=== PATIENT | male | born 1955 | race Hispanic/Latino ===

== ENCOUNTER 2017-07-18 18:37 | Emergency (ER) | payer OTHER ==
[~2017-07-18] VITALS: Ht 170.2 cm; Wt 91.2 kg
[~2017-07-18 18:37] MED LIST: ASPIR 8181 MG PO; BACITRACIN15 GM TOP; BACTRIM DS TAB1 EACH PO; IPRAT-ALBUT 0.5-3 ML NEB; KEFLEX500 MG PO; LEVAQUIN500 MG PO; MEDROL4 MG/DOSE- PO; METFORMIN HCL850 MG PO; PROMETHAZINE V237 ML PO; RAMIPRIL5 MG PO
[2017-07-18] MEDS ORDERED: DIPHENHYDRAMINE HCL 25 MG CAP PO ONE (19:15)
[2017-07-18] MEDS ORDERED: DEXAMETHASONE SOD PHOS 10 MG/1 ML VIAL INJ ONE ×3 (19:15→21:15)
[2017-07-18] MEDS ORDERED: FAMOTIDINE 20 MG TAB PO ONE (19:15)
[2017-07-18] MEDS ORDERED: DEXAMETHASONE SOD PHOS 10 MG/1 ML VIAL ONE (19:20)
[2017-07-18] MEDS ORDERED: HYDROCODONE/APAP 10MG-325MG TAB PO ONE (21:15)
[2017-07-18 21:56] VITALS: BP 153/74
== END 2017-07-18 22:04 | disposition home or self-care (01) ==
LOC: ER 18:37
DX: R21 Rash and other nonspecific skin eruption (principal); L50.9 Urticaria, unspecified
CPT/HCPCS: 96372; 99283; J1100

== ENCOUNTER 2017-10-13 05:56 | Emergency (ER) | payer OTHER ==
[~2017-10-13] VITALS: Ht 170.2 cm; Wt 91.2 kg
[2017-10-13] MEDS ORDERED: ALBUTEROL SULF 0.083% NEB SOLN 3 ML NEB NEB STA (06:09)
[2017-10-13] MEDS ORDERED: PREDNISONE 20 MG TAB PO ONE (06:15)
[2017-10-13] MEDS ORDERED: IPRATROPIUM BROMIDE 0.02% 2.5 ML NEB NEB ONE (06:15)
--- NOTE | 2017-10-13 06:46 | Diagnostic Imaging Report ---
CHEST SINGLE (PORTABLE), 10/13/2017 6:09 AM Technique: CHEST SINGLE (PORTABLE) Comparison: 09/13/2016 Clinical history: Shortness of breath Findings: Mildly degraded by portable technique and motion. Stable cardiomediastinal silhouette. No consolidation or edema. No pleural effusion or pneumothorax. Impression: 1. Lines/Tubes: None 2. No acute abnormality. Signed by: Dr Holly Meadows MD on 10/13/2017 6:43 AM
[2017-10-13] MEDS ORDERED: DEXAMETHASONE SOD PHOS 10 MG/1 ML VIAL INJ ONE (07:30)
[2017-10-13] MEDS ORDERED: ALBUTEROL/IPRATROPIUM 3 ML NEB NEB ONE (07:30)
[2017-10-13 10:28] VITALS: BP 165/90
[2017-10-13 22:16] LABS: ABG HCO3 21 mmol/L (23-28); ABG PCO2 28 mmHg (41-51); ABG PH 7.49 (7.31-7.41); ABG PO2 142 mmHg (80-105)
== END 2017-10-13 10:43 | disposition home or self-care (01) ==
LOC: ER 05:56
DX: R06.02 Shortness of breath (principal); R05 Cough; J44.9 Chronic obstructive pulmonary disease, unspecified; I10 Essential (primary) hypertension; E11.9 Type 2 diabetes mellitus without complications
CPT/HCPCS: 36415; 71045; 82805; 94640 ×2; 99284; J1100

== ENCOUNTER 2019-01-08 15:23 | Emergency (ER) | payer OTHER ==
[~2019-01-08] VITALS: Ht 170.2 cm; Wt 91.2 kg
--- OUTSIDE RECORDS SUMMARY | 2019-01-08 15:28 | XMS REPORT ---
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 Allergies, Adverse Reactions, Alerts This patient has no known allergies or adverse reactions. Medications This patient has no known medications. Results Test Description Test Time Test Comments Text Results Atomic Results Result Comments CHEST SINGLE (PORTABLE) [place] [id number] Patient Name: LUIS MCKEON JR MR #: [id number] : 1955 Age/Sex: 61/M [id number] Req #: [id number] Adm Physician: Ordered by: LINDSEY JACK MD Report #: [id number] Location: ER Room/Bed: Procedure: [id number] DX/CHEST SINGLE (PORTABLE) Exam Date: 10/13/17 Exam Time: 0634 REPORT STATUS: Signed CHEST SINGLE (PORTABLE), 10/13/2017 6:09 AM Technique: CHEST SINGLE (PORTABLE) Comparison: 09/13/2016 Clinical history: Shortness of breath Findings: Mildly degraded by portable technique and motion. Stable cardiomediastinal silhouette. No consolidation or edema. No pleural effusion or pneumothorax. Impression: 1. Lines/Tubes: None 2. No acute abnormality. Signed by: Dr Rosie Meadows MD on 10/13/2017 6:43 AM Dictated By: ROSIE MEADOWS MD 2 Transcribed By: EVY on 10/13/17642 COPY TO: LINDSEY JACK MD
[2019-01-08] MEDS ORDERED: AZITHROMYCIN 500MG/NS 250 ML 250 ML IV ONE (16:45)
--- NOTE | 2019-01-08 16:51 | Diagnostic Imaging Report ---
Frontal and lateral views of the chest. HISTORY: Fever, cough, congestion COMPARISON: Chest radiograph October 13, 2017. DISCUSSION: Lungs: Patchy interstitial and airspace opacities at the right mid lung and left retrocardiac region. Pleura: No pleural effusion or pneumothorax. Heart and mediastinum: The cardiomediastinal silhouette appears unremarkable. Bones and soft tissues: Appear unremarkable. IMPRESSION: 1. Findings compatible with multifocal pneumonia. 2. Recommend short term follow up routine PA and lateral chest radiographs, in 6 to 8 weeks, to evaluate for resolution. Signed by: Dr. Cosme Amaya D.O., M.M.M. on 01/08/2019 4:47 PM
--- NOTE | 2019-01-08 16:56 | NUR ---
BRANDT Flor AT BEDSIDE EVALUATING PATIENT
[2019-01-08] MEDS ORDERED: CEFTRIAXONE SOD 1 GM/NS 50 ML 50 ML IV ONE (17:30)
[2019-01-08 17:51] LABS: BASOPHILS % 0.3 % (0.0-1.0); EOSINOPHILS # (AUTO) 0.3 (0.0-0.4); HEMATOCRIT 40.4 % (38.2-49.6); HEMOGLOBIN 13.7 g/dL (14.0-18.0); LYMPHOCYTES # (AUTO) 1.4 (1.0-3.2); LYMPHOCYTES % 12.4 % (18.0-39.1); MEAN CORPUSCULAR HEMOGLOBIN 31.8 pg (28-32); MEAN CORPUSCULAR HGB CONC 33.9 g/dL (31-35); MEAN CORPUSCULAR VOLUME 93.7 fL (81-99); MONOCYTES # (AUTO) 0.8 (0.2-0.8); MONOCYTES % 6.6 % (4.4-11.3); NEUTROPHILS # (AUTO) 8.8 (2.1-6.9); NEUTROPHILS % 76.9 % (38.7-80.0); PLATELET COUNT 265 x10e3/uL (140-360); RED BLOOD COUNT 4.31 x10e6/uL (4.3-5.7); RED CELL DISTRIBUTION WIDTH 13.4 % (11.7-14.4)
[2019-01-08 18:08] LABS: INR 1.03
[2019-01-08 18:09] LABS: PARTIAL THROMBOPLASTIN TIME 35.1 seconds (23.8-35.5)
[2019-01-08 18:12] LABS: ALANINE AMINOTRANSFERASE 19 IU/L (0-55); ALBUMIN 3.1 g/dL (3.5-5.0); ALBUMIN/GLOBULIN RATIO 0.7 (0.8-2.0); ALKALINE PHOSPHATASE 75 IU/L (40-150); ANION GAP 13.9 mmol/L (8-16); BLOOD UREA NITROGEN 17 mg/dL (7-26); BUN/CREATININE RATIO 22 (6-25); CALCIUM 9.5 mg/dL (8.4-10.2); CARBON DIOXIDE 22 mmol/L (22-29); CHLORIDE 100 mmol/L (98-107); CREATINE KINASE 77 IU/L (30-200); CREATININE, SERUM 0.79 mg/dL (0.72-1.25); EST GLOMERULAR FILTRATION RATE > 60 ML/MIN (60-); GLUCOSE 140 mg/dL (74-118); POTASSIUM 3.9 mmol/L (3.5-5.1); SODIUM 132 mmol/L (136-145)
[2019-01-08 18:16] LABS: BILIRUBIN,URINE NEGATIVE (NEGATIVE); CLARITY,URINE SL CLOUDY (CLEAR); COLOR,URINE YELLOW (YELLOW); KETONES,URINE NEGATIVE (NEGATIVE); LEUKOCYTE ESTERASE ,URINE TRACE (NEGATIVE); NITRITE,URINE NEGATIVE (NEGATIVE); PROTEIN,URINE DIPSTICK TRACE (NEGATIVE); URINE UROBILINOGEN 1 mg/dL (0.2 - 1)
--- NOTE | 2019-01-08 18:21 | NUR ---
DR. FLOOD AT BEDSIDE UPDATING PATIENT ON HIS STATUS
[2019-01-08 18:31] LABS: BACTERIA,URINE RARE /HPF; EPITHELIAL CELLS,URINE RARE /LPF; RBC,URINE 0-5 /HPF (0-5); WBC,URINE (MAN) 21-50 /HPF (0-5)
--- NOTE | 2019-01-08 18:51 | NUR ---
PATIENT RECEIVING IV ANTIBIOTIC. WILL BE DISCHARGED AFTER MEDICATION IS INFUSED
== END 2019-01-08 19:12 | disposition home or self-care (01) ==
LOC: ER 15:23
DX: R50.9 Fever, unspecified (principal); R05 Cough; J15.9 Unspecified bacterial pneumonia; N39.0 Urinary tract infection, site not specified; I10 Essential (primary) hypertension; E11.9 Type 2 diabetes mellitus without complications; J44.9 Chronic obstructive pulmonary disease, unspecified; F17.210 Nicotine dependence, cigarettes, uncomplicated
CPT/HCPCS: 36415; 71046; 80053; 81001; 82550; 82553; 83880; 84484; 85025; 85610; 85730; 87040; 87086; 93005; 99284; J0456; J0696

== ENCOUNTER 2021-08-02 11:14 | Inpatient (IN) | payer MEDICARE, OTHER ==
[~2021-08-02] VITALS: Ht 170.2 cm; Wt 91.2 kg
[2021-08-02] MEDS ORDERED: SODIUM CHLORIDE 0.9% 1000ML 1,000 ML IV STA (12:07)
[2021-08-02 12:19] LABS: BASOPHILS # (AUTO) 0.1 (0.0-0.1); BASOPHILS % 0.4 % (0.0-1.0); EOSINOPHILS # (AUTO) 0.2 (0.0-0.4); HEMATOCRIT 45.5 % (38.2-49.6); HEMOGLOBIN 14.8 g/dL (14.0-18.0); LYMPHOCYTES # (AUTO) 1.2 (1.0-3.2); LYMPHOCYTES % 7.4 % (18.0-39.1); MEAN CORPUSCULAR HEMOGLOBIN 31.2 pg (28-32); MEAN CORPUSCULAR HGB CONC 32.5 g/dL (31-35); MONOCYTES # (AUTO) 1.3 (0.2-0.8); MONOCYTES % 7.8 % (4.4-11.3); NEUTROPHILS # (AUTO) 13.6 (2.1-6.9); NEUTROPHILS % 82.8 % (38.7-80.0); PLATELET COUNT 243 x10e3/uL (140-360); RED BLOOD COUNT 4.74 x10e6/uL (4.3-5.7); RED CELL DISTRIBUTION WIDTH 12.6 % (11.7-14.4)
[2021-08-02 12:25] LABS: INR 0.97; PROTHROMBIN TIME 13.6 seconds (11.9-14.5)
[2021-08-02 12:26] LABS: PARTIAL THROMBOPLASTIN TIME 34.7 seconds (23.8-35.5)
[2021-08-02 12:34] LABS: ALBUMIN 3.8 g/dL (3.5-5.0); ALBUMIN/GLOBULIN RATIO 0.9 (0.8-2.0); ANION GAP 15.2 mmol/L (8-16); CALCIUM 9.6 mg/dL (8.4-10.2); CREATININE, SERUM 0.79 mg/dL (0.72-1.25); MAGNESIUM 1.8 MG/DL (1.3-2.1); POTASSIUM 4.2 mmol/L (3.5-5.1)
[2021-08-02 12:35] LABS: CLARITY,URINE TURBID (CLEAR); COLOR,URINE YELLOW (YELLOW); KETONES,URINE 1+ (NEGATIVE); LEUKOCYTE ESTERASE ,URINE SMALL (NEGATIVE); NITRITE,URINE POSITIVE (NEGATIVE); PROTEIN,URINE DIPSTICK 2+ (NEGATIVE); URINE UROBILINOGEN 1 mg/dL (0.2 - 1); WBC,URINE (MAN) >50 /HPF (0-5)
[2021-08-02 12:36] LABS: BACTERIA,URINE MODERATE /HPF; EPITHELIAL CELLS,URINE FEW /LPF; RBC,URINE >50 /HPF (0-5)
[2021-08-02 12:40] LABS: CREATINE KINASE MB 2.9 ng/mL (0-5.0)
[2021-08-02] MEDS ORDERED: MEROPENEM 1 GM in SODIUM CHLORIDE 0.9% 100 ML IV ONE (13:00)
[2021-08-02] MEDS ORDERED: ONDANSETRON HCL INJ 2MG/ML 2ML 2 MG/ML VIAL IV STA (13:21)
[2021-08-02] MEDS ORDERED: Morphine 4mg Syringe 4 MG/ML INJ IV STA (13:21)
[2021-08-02] MEDS ORDERED: ONDANSETRON HCL INJ 2MG/ML 2ML 2 MG/ML VIAL IV PRN (15:15)
[2021-08-02] MEDS ORDERED: ALBUTEROL/IPRATROPIUM 3 ML NEB NEB PRN (15:45)
[2021-08-02] MEDS ORDERED: GLIPIZIDE5 MG PO (17:12)
[2021-08-02] MEDS ORDERED: HYDRALAZINE HC100 MG PO (17:12)
[2021-08-02] MEDS ORDERED: METFORMIN HCL500 MG PO (17:12)
[2021-08-02] MEDS ORDERED: ATORVASTATIN CA20 MG PO (17:12)
[2021-08-02] MEDS ORDERED: LISINOPRIL10 MG PO (17:12)
[2021-08-02 17:21] VITALS: BP 135/61
[2021-08-02 17:25] VITALS: BP 135/61
[2021-08-02] MEDS: METFORMIN HCL 850 MG TAB PO SCH (17:57)
[2021-08-02] MEDS: Morphine 4mg Syringe 4 MG/ML INJ IV PRN (18:01)
[2021-08-02 20:00] VITALS: BP 107/60
[2021-08-02 20:05] VITALS: BP 135/61
[2021-08-02] MEDS ORDERED: SODIUM CHLORIDE 0.9% 250ML 250 ML ONE (21:47)
[2021-08-02] MEDS: MEROPENEM 1 GM in SODIUM CHLORIDE 0.9% 100 ML IV SCH (22:00)
[2021-08-03] VITALS (8 sets, daily range): BP systolic 95–140; BP diastolic 55–77
[2021-08-03] MEDS: ATORVASTATIN 20 MG TAB PO SCH ×2 (00:30→21:45)
[2021-08-03] MEDS: Morphine 4mg Syringe 4 MG/ML INJ IV PRN ×4 (00:31→21:45)
[2021-08-03] MEDS: MEROPENEM 1 GM in SODIUM CHLORIDE 0.9% 100 ML IV SCH ×3 (05:47→21:45)
[2021-08-03] MEDS: SODIUM CHLORIDE 0.9% 1000ML 1,000 ML IV SCH (06:20)
[2021-08-03 07:20] LABS: BASOPHILS # (AUTO) 0.1 (0.0-0.1); BASOPHILS % 0.4 % (0.0-1.0); EOSINOPHILS # (AUTO) 0.6 (0.0-0.4); EOSINOPHILS % 4.6 % (0.0-6.0); HEMATOCRIT 39.3 % (38.2-49.6); HEMOGLOBIN 12.4 g/dL (14.0-18.0); LYMPHOCYTES # (AUTO) 1.4 (1.0-3.2); LYMPHOCYTES % 10.4 % (18.0-39.1); MEAN CORPUSCULAR HEMOGLOBIN 30.8 pg (28-32); MEAN CORPUSCULAR HGB CONC 31.6 g/dL (31-35); MEAN CORPUSCULAR VOLUME 97.5 fL (81-99); MONOCYTES # (AUTO) 1.2 (0.2-0.8); MONOCYTES % 9.4 % (4.4-11.3); NEUTROPHILS # (AUTO) 9.7 (2.1-6.9); NEUTROPHILS % 74.6 % (38.7-80.0); PLATELET COUNT 213 x10e3/uL (140-360); RED BLOOD COUNT 4.03 x10e6/uL (4.3-5.7); RED CELL DISTRIBUTION WIDTH 12.9 % (11.7-14.4)
[2021-08-03 07:45] LABS: ALBUMIN/GLOBULIN RATIO 0.8 (0.8-2.0); ANION GAP 13.1 mmol/L (8-16); CALCIUM 8.8 mg/dL (8.4-10.2); CREATININE, SERUM 0.72 mg/dL (0.72-1.25); POTASSIUM 4.1 mmol/L (3.5-5.1)
[2021-08-03 07:58] LABS: CHOL/HDL RATIO 4.1 (3.9-4.7); PHOSPHORUS 3.1 MG/DL (2.3-4.7)
[2021-08-03 08:06] LABS: CREATINE KINASE MB 1.8 ng/mL (0-5.0)
[2021-08-03 08:19] LABS: THYROID STIMULATING HORMONE 1.502 uIU/mL (0.350-4.940)
[2021-08-03] MEDS: RAMIPRIL 5 MG CAP PO SCH (09:07)
[2021-08-03] MEDS: GLIPIZIDE 5 MG TAB PO SCH ×2 (09:07→16:35)
[2021-08-03] MEDS: METFORMIN HCL 850 MG TAB PO SCH ×2 (09:07→16:35)
[2021-08-04] VITALS (9 sets, daily range): BP systolic 123–143; BP diastolic 53–71
[2021-08-04] MEDS: HYDROMORPHONE 1MG/1ML INJ IV PRN ×4 (01:38→20:38)
[2021-08-04] MEDS: SODIUM CHLORIDE 0.9% 1000ML 1,000 ML IV SCH ×2 (02:25→22:15)
[2021-08-04] MEDS: MEROPENEM 1 GM in SODIUM CHLORIDE 0.9% 100 ML IV SCH ×3 (05:55→22:15)
[2021-08-04] MEDS: RAMIPRIL 5 MG CAP PO SCH (08:41)
[2021-08-04] MEDS: GLIPIZIDE 5 MG TAB PO SCH ×2 (08:41→16:50)
[2021-08-04] MEDS: METFORMIN HCL 850 MG TAB PO SCH ×2 (08:41→16:50)
[2021-08-04] MEDS: ENOXAPARIN 30 MG/0.3 ML SYR SC SCH ×2 (12:29→22:15)
[2021-08-04 14:56] LABS: BASOPHILS % 0.4 % (0.0-1.0); EOSINOPHILS # (AUTO) 0.8 (0.0-0.4); EOSINOPHILS % 7.9 % (0.0-6.0); HEMATOCRIT 38.3 % (38.2-49.6); HEMOGLOBIN 12.4 g/dL (14.0-18.0); LYMPHOCYTES # (AUTO) 1.6 (1.0-3.2); LYMPHOCYTES % 15.8 % (18.0-39.1); MEAN CORPUSCULAR HGB CONC 32.4 g/dL (31-35); MEAN CORPUSCULAR VOLUME 95.8 fL (81-99); MONOCYTES # (AUTO) 0.9 (0.2-0.8); MONOCYTES % 8.4 % (4.4-11.3); NEUTROPHILS # (AUTO) 6.7 (2.1-6.9); NEUTROPHILS % 66.5 % (38.7-80.0); PLATELET COUNT 222 x10e3/uL (140-360); RED CELL DISTRIBUTION WIDTH 12.8 % (11.7-14.4)
[2021-08-04 15:15] LABS: ALBUMIN 2.9 g/dL (3.5-5.0); ALBUMIN/GLOBULIN RATIO 0.8 (0.8-2.0); ANION GAP 13.4 mmol/L (8-16); CREATININE, SERUM 0.65 mg/dL (0.72-1.25); POTASSIUM 4.4 mmol/L (3.5-5.1)
[2021-08-04] MEDS: ATORVASTATIN 20 MG TAB PO SCH (22:15)
[2021-08-05] VITALS (11 sets, daily range): BP systolic 0–152; BP diastolic 58–73
[2021-08-05 05:29] LABS: BASOPHILS % 0.5 % (0.0-1.0); EOSINOPHILS # (AUTO) 0.7 (0.0-0.4); EOSINOPHILS % 8.3 % (0.0-6.0); HEMATOCRIT 37.1 % (38.2-49.6); HEMOGLOBIN 12.2 g/dL (14.0-18.0); LYMPHOCYTES # (AUTO) 1.4 (1.0-3.2); LYMPHOCYTES % 16.2 % (18.0-39.1); MEAN CORPUSCULAR HEMOGLOBIN 31.2 pg (28-32); MEAN CORPUSCULAR HGB CONC 32.9 g/dL (31-35); MEAN CORPUSCULAR VOLUME 94.9 fL (81-99); MONOCYTES # (AUTO) 0.9 (0.2-0.8); MONOCYTES % 9.6 % (4.4-11.3); NEUTROPHILS # (AUTO) 5.7 (2.1-6.9); NEUTROPHILS % 64.2 % (38.7-80.0); PLATELET COUNT 230 x10e3/uL (140-360); RED BLOOD COUNT 3.91 x10e6/uL (4.3-5.7); RED CELL DISTRIBUTION WIDTH 12.6 % (11.7-14.4)
[2021-08-05] MEDS: MEROPENEM 1 GM in SODIUM CHLORIDE 0.9% 100 ML IV SCH ×3 (05:32→22:00)
[2021-08-05 06:54] LABS: ALBUMIN 2.9 g/dL (3.5-5.0); ALBUMIN/GLOBULIN RATIO 0.8 (0.8-2.0); ANION GAP 12.3 mmol/L (8-16); CREATININE, SERUM 0.64 mg/dL (0.72-1.25); POTASSIUM 4.3 mmol/L (3.5-5.1)
[2021-08-05] MEDS: ENOXAPARIN 30 MG/0.3 ML SYR SC SCH (10:18)
[2021-08-05] MEDS: RAMIPRIL 5 MG CAP PO SCH (10:18)
[2021-08-05] MEDS: METFORMIN HCL 850 MG TAB PO SCH ×2 (10:18→17:29)
[2021-08-05] MEDS: GLIPIZIDE 5 MG TAB PO SCH ×2 (10:18→17:29)
[2021-08-05] MEDS: HYDROMORPHONE 1MG/1ML INJ IV PRN ×2 (13:03→20:57)
[2021-08-05] MEDS: SODIUM CHLORIDE 0.9% 1000ML 1,000 ML IV SCH (17:29)
[2021-08-05] MEDS: ATORVASTATIN 20 MG TAB PO SCH (20:35)
[2021-08-06 04:10] VITALS: BP 126/72
[2021-08-06] MEDS ORDERED: SODIUM CHLORIDE 0.9% 100 ML ONE (05:13)
[2021-08-06 05:20] LABS: BASOPHILS # (AUTO) 0.1 (0.0-0.1); BASOPHILS % 0.6 % (0.0-1.0); EOSINOPHILS # (AUTO) 0.9 (0.0-0.4); EOSINOPHILS % 10.5 % (0.0-6.0); HEMATOCRIT 39.5 % (38.2-49.6); HEMOGLOBIN 12.9 g/dL (14.0-18.0); LYMPHOCYTES # (AUTO) 1.7 (1.0-3.2); LYMPHOCYTES % 21.3 % (18.0-39.1); MEAN CORPUSCULAR HEMOGLOBIN 30.6 pg (28-32); MEAN CORPUSCULAR HGB CONC 32.7 g/dL (31-35); MEAN CORPUSCULAR VOLUME 93.8 fL (81-99); MONOCYTES # (AUTO) 0.7 (0.2-0.8); MONOCYTES % 8.6 % (4.4-11.3); NEUTROPHILS # (AUTO) 4.6 (2.1-6.9); NEUTROPHILS % 57.2 % (38.7-80.0); PLATELET COUNT 248 x10e3/uL (140-360); RED BLOOD COUNT 4.21 x10e6/uL (4.3-5.7); RED CELL DISTRIBUTION WIDTH 12.4 % (11.7-14.4)
[2021-08-06 05:39] LABS: ANION GAP 11.3 mmol/L (8-16); CALCIUM 8.7 mg/dL (8.4-10.2); CREATININE, SERUM 0.65 mg/dL (0.72-1.25); POTASSIUM 4.3 mmol/L (3.5-5.1)
[2021-08-06] MEDS: MEROPENEM 1 GM in SODIUM CHLORIDE 0.9% 100 ML IV SCH (06:06)
[2021-08-06] MEDS: HYDROMORPHONE 1MG/1ML INJ IV PRN ×3 (06:33→17:20)
[2021-08-06] MEDS: METFORMIN HCL 850 MG TAB PO SCH ×2 (08:00→16:27)
[2021-08-06] MEDS ORDERED: IOPAMIDOL 300MG/ML 50ML INFUS..BTL IV ONE (08:00)
[2021-08-06] MEDS ORDERED: BELLADONNA/OPIUM 30 MG SUPP RC ONE (08:00)
[2021-08-06] MEDS ORDERED: GENTAMICIN 120MG/NS 100ML 100 ML ONE (08:23)
[2021-08-06] MEDS ORDERED: GENTAMICIN 120MG/NS 100ML 200 ML ONE (08:26)
[2021-08-06] MEDS ORDERED: ACETAMINOPHEN 1000 MG/100 ML 100 ML IV ONE (08:44)
[2021-08-06] MEDS: GLIPIZIDE 5 MG TAB PO SCH ×2 (09:00→16:26)
[2021-08-06] MEDS: RAMIPRIL 5 MG CAP PO SCH (09:00)
[2021-08-06] MEDS ORDERED: B&O 60MG R/S 60 MG SUPP PR PRN (09:30)
[2021-08-06] MEDS ORDERED: PHENAZOPYRIDINE HCL 100 MG TAB PO PRN (09:30)
[2021-08-06] MEDS ORDERED: FENTANYL CITRATE/PF 100MCG/2 ML INJ ONE ×2 (10:09→12:30)
[2021-08-06] MEDS ORDERED: ONDANSETRON HCL INJ 2MG/ML 2ML 2 MG/ML VIAL ONE (11:49)
[2021-08-06] MEDS ORDERED: SEVOFLURANE INHAL SOLN 250 ML PEN BTL ONE (11:49)
[2021-08-06] MEDS ORDERED: POVIDONE IODINE 0.05% 0.05 % ML PO ONE (11:49)
[2021-08-06] MEDS ORDERED: PROPOFOL IV EMULSION 10 MG/ML 20 ML VIAL ONE (11:49)
[2021-08-06] MEDS ORDERED: LIDOCAINE HCL 2% LOCAL INJ 5 ML SDV VIAL INJ ONE (11:49)
[2021-08-06] MEDS ORDERED: LIDOCAINE HCL 2% JELLY 5 ML TUBE ONE (11:49)
[2021-08-06] MEDS ORDERED: DEXAMETHASONE SOD PHOS INJ 4 MG/ML SDV ONE (11:49)
[2021-08-06 12:10] VITALS: BP 156/75
[2021-08-06] MEDS ORDERED: MIDAZOLAM HCL 2 MG/2 ML VIAL ONE (12:30)
[2021-08-06] MEDS: SODIUM CHLORIDE 0.9% 1000ML 1,000 ML IV SCH (14:03)
[2021-08-06 16:23] VITALS: BP 137/66
[2021-08-06] MEDS: OXYBUTYNIN CHLORIDE 5 MG TAB PO SCH ×2 (16:26→21:55)
[2021-08-06] MEDS: LIDOCAINE 4% PATCH TP SCH (17:15)
[2021-08-06 19:41] VITALS: BP 150/67
[2021-08-06 21:00] VITALS: BP 150/67
[2021-08-06] MEDS: ATORVASTATIN 20 MG TAB PO SCH (21:00)
[2021-08-06] MEDS: CEFEPIME 1 GM in SODIUM CHLORIDE 0.9% 50ML 50 ML IV SCH (21:30)
[2021-08-06 23:36] VITALS: BP 127/62
[2021-08-07] VITALS (8 sets, daily range): BP systolic 135–161; BP diastolic 67–91
[2021-08-07] MEDS: HYDROMORPHONE 1MG/1ML INJ IV PRN ×5 (00:45→20:18)
[2021-08-07 05:25] LABS: BASOPHILS % 0.4 % (0.0-1.0); EOSINOPHILS # (AUTO) 0.1 (0.0-0.4); EOSINOPHILS % 1.3 % (0.0-6.0); HEMATOCRIT 39.3 % (38.2-49.6); HEMOGLOBIN 12.4 g/dL (14.0-18.0); LYMPHOCYTES # (AUTO) 1.7 (1.0-3.2); MEAN CORPUSCULAR HEMOGLOBIN 30.8 pg (28-32); MEAN CORPUSCULAR HGB CONC 31.6 g/dL (31-35); MEAN CORPUSCULAR VOLUME 97.8 fL (81-99); MONOCYTES # (AUTO) 0.7 (0.2-0.8); MONOCYTES % 6.1 % (4.4-11.3); NEUTROPHILS # (AUTO) 8.1 (2.1-6.9); NEUTROPHILS % 74.6 % (38.7-80.0); PLATELET COUNT 262 x10e3/uL (140-360); RED BLOOD COUNT 4.02 x10e6/uL (4.3-5.7); RED CELL DISTRIBUTION WIDTH 12.2 % (11.7-14.4)
[2021-08-07 05:53] LABS: ALBUMIN 2.8 g/dL (3.5-5.0); ALBUMIN/GLOBULIN RATIO 0.8 (0.8-2.0); ANION GAP 13.1 mmol/L (8-16); CALCIUM 8.7 mg/dL (8.4-10.2); CREATININE, SERUM 0.67 mg/dL (0.72-1.25); POTASSIUM 4.1 mmol/L (3.5-5.1)
[2021-08-07] MEDS: LIDOCAINE 4% PATCH TP SCH (08:12)
[2021-08-07] MEDS: GLIPIZIDE 5 MG TAB PO SCH ×2 (08:13→16:03)
[2021-08-07] MEDS: OXYBUTYNIN CHLORIDE 5 MG TAB PO SCH ×3 (08:13→20:54)
[2021-08-07] MEDS: METFORMIN HCL 850 MG TAB PO SCH ×2 (08:13→16:02)
[2021-08-07] MEDS: RAMIPRIL 5 MG CAP PO SCH (08:13)
[2021-08-07] MEDS: CEFEPIME 1 GM in SODIUM CHLORIDE 0.9% 50ML 50 ML IV SCH ×2 (08:14→20:54)
[2021-08-07] MEDS: SODIUM CHLORIDE 0.9% 1000ML 1,000 ML IV SCH (09:00)
[2021-08-07] MEDS: ATORVASTATIN 20 MG TAB PO SCH (20:54)
[2021-08-08] MEDS: HYDROMORPHONE 1MG/1ML INJ IV PRN ×2 (02:54→08:11)
[2021-08-08 05:04] LABS: BASOPHILS # (AUTO) 0.1 (0.0-0.1); BASOPHILS % 0.5 % (0.0-1.0); EOSINOPHILS # (AUTO) 0.5 (0.0-0.4); EOSINOPHILS % 5.1 % (0.0-6.0); HEMATOCRIT 37.7 % (38.2-49.6); HEMOGLOBIN 12.5 g/dL (14.0-18.0); LYMPHOCYTES # (AUTO) 2.1 (1.0-3.2); LYMPHOCYTES % 22.8 % (18.0-39.1); MEAN CORPUSCULAR HEMOGLOBIN 31.3 pg (28-32); MEAN CORPUSCULAR HGB CONC 33.2 g/dL (31-35); MEAN CORPUSCULAR VOLUME 94.5 fL (81-99); MONOCYTES # (AUTO) 0.7 (0.2-0.8); MONOCYTES % 7.1 % (4.4-11.3); NEUTROPHILS # (AUTO) 5.8 (2.1-6.9); NEUTROPHILS % 62.8 % (38.7-80.0); PLATELET COUNT 281 x10e3/uL (140-360); RED BLOOD COUNT 3.99 x10e6/uL (4.3-5.7); RED CELL DISTRIBUTION WIDTH 12.4 % (11.7-14.4)
[2021-08-08 05:05] VITALS: BP 138/72
[2021-08-08 05:43] LABS: ANION GAP 12.2 mmol/L (8-16); CALCIUM 8.5 mg/dL (8.4-10.2); CREATININE, SERUM 0.67 mg/dL (0.72-1.25); MAGNESIUM 2.1 MG/DL (1.3-2.1); PHOSPHORUS 3.6 MG/DL (2.3-4.7); POTASSIUM 4.2 mmol/L (3.5-5.1)
[2021-08-08] MEDS: SODIUM CHLORIDE 0.9% 1000ML 1,000 ML IV SCH (06:29)
[2021-08-08 07:30] VITALS: BP 152/70
[2021-08-08] MEDS: OXYBUTYNIN CHLORIDE 5 MG TAB PO SCH (08:32)
[2021-08-08] MEDS: RAMIPRIL 5 MG CAP PO SCH (08:32)
[2021-08-08] MEDS: METFORMIN HCL 850 MG TAB PO SCH (08:32)
[2021-08-08] MEDS: LIDOCAINE 4% PATCH TP SCH (08:33)
[2021-08-08] MEDS: GLIPIZIDE 5 MG TAB PO SCH (08:33)
[2021-08-08] MEDS: CEFEPIME 1 GM in SODIUM CHLORIDE 0.9% 50ML 50 ML IV SCH (08:33)
[2021-08-08 09:00] VITALS: BP 152/70
[2021-08-08] MEDS ORDERED: OXYBUTYNIN CHLOR5 MG PO (09:05)
[2021-08-08 11:26] VITALS: BP 145/77
[2021-08-08] MEDS ORDERED: ONDANSETRON HCL 4 MG ORAL DISINTEGRATING TAB PO PRN (12:30)
[2021-08-11] MEDS ORDERED: CIPROFLOXACIN500 MG PO (17:50)
== END 2021-08-08 12:13 | disposition home or self-care (01) | DRG 854 ==
LOC: ER 11:18 → ERHOLD 15:16 → MED/SURG3 16:50
PROVIDERS: ADMIT Internal Medicine; ATTEND Internal Medicine
PROC: BT141ZZ Fluoroscopy of Kidneys, Ureters and Bladder using Low Osmolar Contrast (ICD-10-PCS; 2021-08-06)
PROC: 0T7D8ZZ Dilation of Urethra, Via Natural or Artificial Opening Endoscopic (ICD-10-PCS; principal; 2021-08-06 08:30)
PROC: 0V508ZZ Destruction of Prostate, Via Natural or Artificial Opening Endoscopic (ICD-10-PCS; 2021-08-06 08:30)
DX: A41.9 Sepsis, unspecified organism (principal); N39.0 Urinary tract infection, site not specified; E87.1 Hypo-osmolality and hyponatremia; N13.8 Other obstructive and reflux uropathy; N40.1 Benign prostatic hyperplasia with lower urinary tract symptoms; R33.8 Other retention of urine; N45.3 Epididymo-orchitis; N28.1 Cyst of kidney, acquired; E66.9 Obesity, unspecified; Z68.31 Body mass index [BMI] 31.0-31.9, adult; I10 Essential (primary) hypertension; J44.9 Chronic obstructive pulmonary disease, unspecified; E11.65 Type 2 diabetes mellitus with hyperglycemia; Z72.0 Tobacco use; E11.69 Type 2 diabetes mellitus with other specified complication; E78.5 Hyperlipidemia, unspecified; B96.5 Pseudomonas (aeruginosa) (mallei) (pseudomallei) as the cause of diseases classified elsewhere; M79.651 Pain in right thigh; N32.81 Overactive bladder; D64.9 Anemia, unspecified; Z79.82 Long term (current) use of aspirin; Z79.84 Long term (current) use of oral hypoglycemic drugs; N35.912 Unspecified bulbous urethral stricture, male; N32.3 Diverticulum of bladder; R81 Glycosuria; R80.9 Proteinuria, unspecified; Z71.6 Tobacco abuse counseling; Z20.822 Contact with and (suspected) exposure to COVID-19
CPT/HCPCS: 36415; 71045; 74176; 74420; 76870; 80048; 80053; 80061; 81001; 82550; 82553; 82948; 83036; 83605; 83735; 84100; 84443; 84484; 85025; 85610; 85730; 87040; 87086; 87186; 93005; 93306; 93971; 93976; 99284; C1758; J0692; J1100; J1170; J1580; J1650; J2001; J2185; J2250; J2270; J2405; J3010; J7030; J7050; U0002

== ENCOUNTER 2021-08-10 13:34 | Inpatient (IN) | payer MEDICARE ==
[~2021-08-10] VITALS: Ht 165.1 cm; Wt 91.2 kg
[~2021-08-10 13:34] MED LIST changes: +ATORVASTATIN CA20 MG PO; +GLIPIZIDE5 MG PO; +HYDRALAZINE HC100 MG PO; +LISINOPRIL10 MG PO; +METFORMIN HCL500 MG PO; +OXYBUTYNIN CHLOR5 MG PO
[2021-08-10 14:09] LABS: BASOPHILS # (AUTO) 0.1 (0.0-0.1); BASOPHILS % 0.4 % (0.0-1.0); EOSINOPHILS # (AUTO) 0.7 (0.0-0.4); EOSINOPHILS % 5.6 % (0.0-6.0); HEMOGLOBIN 13.7 g/dL (14.0-18.0); LYMPHOCYTES # (AUTO) 1.9 (1.0-3.2); LYMPHOCYTES % 15.7 % (18.0-39.1); MEAN CORPUSCULAR HEMOGLOBIN 30.6 pg (28-32); MEAN CORPUSCULAR HGB CONC 31.9 g/dL (31-35); MEAN CORPUSCULAR VOLUME 96.2 fL (81-99); MONOCYTES # (AUTO) 0.6 (0.2-0.8); MONOCYTES % 4.8 % (4.4-11.3); NEUTROPHILS # (AUTO) 8.7 (2.1-6.9); NEUTROPHILS % 72.1 % (38.7-80.0); PLATELET COUNT 390 x10e3/uL (140-360); RED BLOOD COUNT 4.47 x10e6/uL (4.3-5.7); RED CELL DISTRIBUTION WIDTH 12.8 % (11.7-14.4)
[2021-08-10 14:15] LABS: INR 0.96; PROTHROMBIN TIME 13.5 seconds (11.9-14.5)
[2021-08-10] MEDS ORDERED: SODIUM CHLORIDE 0.9% 1000ML 1,000 ML IV SCH ×2 (14:15→17:00)
[2021-08-10 14:16] LABS: PARTIAL THROMBOPLASTIN TIME 30.9 seconds (23.8-35.5)
[2021-08-10 14:27] LABS: ALBUMIN 3.3 g/dL (3.5-5.0); ALBUMIN/GLOBULIN RATIO 0.9 (0.8-2.0); CALCIUM 9.3 mg/dL (8.4-10.2); CREATININE, SERUM 0.95 mg/dL (0.72-1.25)
[2021-08-10 14:30] LABS: CLARITY,URINE HAZY (CLEAR); COLOR,URINE AMBER (YELLOW)
[2021-08-10] MEDS ORDERED: SODIUM CHLORIDE 0.9% IV ONE (14:30)
[2021-08-10] MEDS ORDERED: PIPERACILLIN/TAZOBACTAM 3.375 GM in SODIUM CHLORIDE 0.9% 50ML 50 ML IV ONE (14:30)
[2021-08-10 14:31] LABS: KETONES,URINE 1+ (NEGATIVE); LEUKOCYTE ESTERASE ,URINE LARGE (NEGATIVE); NITRITE,URINE POSITIVE (NEGATIVE); PROTEIN,URINE DIPSTICK >=300 (NEGATIVE)
[2021-08-10 14:33] LABS: CREATINE KINASE MB 3.2 ng/mL (0-5.0)
[2021-08-10 14:33] LABS: AMORPHOUS SEDIMENT,URINE FEW (FEW); BACTERIA,URINE FEW /HPF; EPITHELIAL CELLS,URINE FEW /LPF; RBC,URINE >50 /HPF (0-5); WBC,URINE (MAN) >50 /HPF (0-5)
[2021-08-10] MEDS ORDERED: SODIUM CHLORIDE 0.9% 50ML 50 ML ONE (14:52)
[2021-08-10] MEDS ORDERED: IOPAMIDOL 370 MG/ML 200 ML INFUS..BTL INJ ONE (14:52)
[2021-08-10] MEDS ORDERED: Vancomycin IV 1 GM in SODIUM CHLORIDE 0.9% 250ML 250 ML IV ONE (15:30)
[2021-08-10] MEDS ORDERED: SODIUM CHLORIDE 0.9% 1000ML 1,000 ML IV STA (15:32)
[2021-08-10] MEDS ORDERED: MEROPENEM 1 GM in SODIUM CHLORIDE 0.9% 100 ML IV SCH (15:45)
[2021-08-10] MEDS ORDERED: FAMOTIDINE 20 MG/2 ML VIAL IV SCH (17:00)
[2021-08-10] MEDS ORDERED: ONDANSETRON HCL INJ 2MG/ML 2ML 2 MG/ML VIAL IV PRN (17:00)
[2021-08-10 18:05] VITALS: BP 128/63
[2021-08-10] MEDS ORDERED: ENOXAPARIN SOD INJ 40 MG/0.4 ML SYR SC SCH (19:00)
[2021-08-10] MEDS ORDERED: ACETAMINOPHEN 325 MG TAB PO PRN (19:00)
[2021-08-10] MEDS ORDERED: ACETAMINOPHEN/CODEINE 300MG - 30MG TAB PO PRN (19:00)
[2021-08-10] MEDS ORDERED: ALBUTEROL/IPRATROPIUM 3 ML NEB NEB PRN (19:15)
[2021-08-10] MEDS ORDERED: CLONIDINE HCL 0.1 MG TAB PO PRN (19:15)
[2021-08-10] MEDS ORDERED: NICOTINE 21 MG/EA PATCH TOP PRN (19:15)
[2021-08-10 19:30] VITALS: BP 128/63
[2021-08-10 20:00] VITALS: BP 146/78
[2021-08-10 21:00] VITALS: BP 146/78
[2021-08-10] MEDS: INSULIN LISPRO 100 UNIT/1 ML 3ML VIAL SQ SCH (21:00)
[2021-08-10] MEDS: LACTATED RINGER'S 1,000 ML INJ SCH (21:32)
[2021-08-11] VITALS (8 sets, daily range): BP systolic 134–159; BP diastolic 63–81
[2021-08-11] MEDS ORDERED: MEROPENEM 0.5 GM in SODIUM CHLORIDE 0.9% 100 ML IV SCH ×2
[2021-08-11] MEDS: MEROPENEM 500 MG in SODIUM CHLORIDE 0.9% 50ML 50 ML IV SCH ×2 (00:02→06:00)
[2021-08-11 05:54] LABS: BASOPHILS % 0.5 % (0.0-1.0); EOSINOPHILS # (AUTO) 0.9 (0.0-0.4); EOSINOPHILS % 11.6 % (0.0-6.0); HEMATOCRIT 37.6 % (38.2-49.6); HEMOGLOBIN 12.1 g/dL (14.0-18.0); LYMPHOCYTES # (AUTO) 1.6 (1.0-3.2); LYMPHOCYTES % 21.4 % (18.0-39.1); MEAN CORPUSCULAR HEMOGLOBIN 31.1 pg (28-32); MEAN CORPUSCULAR HGB CONC 32.2 g/dL (31-35); MEAN CORPUSCULAR VOLUME 96.7 fL (81-99); MONOCYTES # (AUTO) 0.6 (0.2-0.8); MONOCYTES % 7.7 % (4.4-11.3); NEUTROPHILS # (AUTO) 4.2 (2.1-6.9); NEUTROPHILS % 57.4 % (38.7-80.0); PLATELET COUNT 334 x10e3/uL (140-360); RED BLOOD COUNT 3.89 x10e6/uL (4.3-5.7); RED CELL DISTRIBUTION WIDTH 12.6 % (11.7-14.4)
[2021-08-11 06:09] LABS: ALBUMIN 2.9 g/dL (3.5-5.0); ANION GAP 12.9 mmol/L (8-16); CALCIUM 8.5 mg/dL (8.4-10.2); CREATININE, SERUM 0.65 mg/dL (0.72-1.25); POTASSIUM 3.9 mmol/L (3.5-5.1)
[2021-08-11] MEDS: LACTATED RINGER'S 1,000 ML INJ SCH (06:19)
[2021-08-11] MEDS ORDERED: METFORMIN HCL500 MG PO (06:51)
[2021-08-11] MEDS: INSULIN LISPRO 100 UNIT/1 ML 3ML VIAL SQ SCH ×3 (07:30→16:30)
[2021-08-11] MEDS ORDERED: ONDANSETRON HCL INJ 2MG/ML 2ML 2 MG/ML VIAL IV PRN (11:15)
[2021-08-11] MEDS ORDERED: LISINOPRIL 10 MG TAB PO SCH (11:15)
[2021-08-11] MEDS ORDERED: CIPROFLOXACIN 500 MG TAB PO SCH ×2 (11:15→18:00)
[2021-08-11] MEDS ORDERED: CIPROFLOXACIN500 MG PO (17:50)
== END 2021-08-11 18:32 | disposition home or self-care (01) | DRG 315 ==
LOC: ER 13:56 → ERHOLD 17:01 → IMCU 18:08 → MED/SURG3 08-11 16:21
PROVIDERS: ADMIT Internal Medicine; ATTEND Internal Medicine
PROC: 02HV33Z Insertion of Infusion Device into Superior Vena Cava, Percutaneous Approach (ICD-10-PCS; principal; 2021-08-10)
DX: I95.89 Other hypotension (principal); E87.1 Hypo-osmolality and hyponatremia; E87.2 Acidosis; E86.0 Dehydration; J44.9 Chronic obstructive pulmonary disease, unspecified; E11.9 Type 2 diabetes mellitus without complications; E66.01 Morbid (severe) obesity due to excess calories; Z68.33 Body mass index [BMI] 33.0-33.9, adult; Z98.890 Other specified postprocedural states; T46.5X5A Adverse effect of other antihypertensive drugs, initial encounter
CPT/HCPCS: 36415; 36569; 71045; 74177; 80053; 81001; 82550; 82553; 82948; 83605; 84484; 85025; 85610; 85730; 87040; 87086; 93005; 94799; 99284; J1650; J2185; J2543; J3370; J7030; J7050; J7121; Q9967; U0002

== ENCOUNTER 2021-09-28 11:02 | Emergency (ER) | payer MEDICARE ==
[~2021-09-28] VITALS: Ht 165.1 cm; Wt 91.2 kg
[~2021-09-28 11:02] MED LIST changes: +CIPROFLOXACIN500 MG PO
[2021-09-28 11:56] LABS: BASOPHILS % 0.3 % (0.0-1.0); EOSINOPHILS # (AUTO) 0.3 (0.0-0.4); EOSINOPHILS % 1.8 % (0.0-6.0); HEMATOCRIT 44.8 % (38.2-49.6); HEMOGLOBIN 14.9 g/dL (14.0-18.0); LYMPHOCYTES # (AUTO) 1.6 (1.0-3.2); LYMPHOCYTES % 11.8 % (18.0-39.1); MEAN CORPUSCULAR HEMOGLOBIN 31.5 pg (28-32); MEAN CORPUSCULAR HGB CONC 33.3 g/dL (31-35); MEAN CORPUSCULAR VOLUME 94.7 fL (81-99); MONOCYTES % 7.2 % (4.4-11.3); NEUTROPHILS # (AUTO) 10.8 (2.1-6.9); NEUTROPHILS % 78.1 % (38.7-80.0); PLATELET COUNT 274 x10e3/uL (140-360); RED BLOOD COUNT 4.73 x10e6/uL (4.3-5.7); RED CELL DISTRIBUTION WIDTH 13.5 % (11.7-14.4)
[2021-09-28] MEDS ORDERED: LEVOFLOXACIN 500 MG TAB PO ONE (12:00)
[2021-09-28] MEDS ORDERED: SODIUM CHLORIDE 0.9% 1000ML 1,000 ML IV STA (12:08)
[2021-09-28] MEDS ORDERED: LEVOFLOXACIN 250 MG TAB PO ONE (12:15)
[2021-09-28 12:16] LABS: CLARITY,URINE TURBID (CLEAR); COLOR,URINE YELLOW (YELLOW); KETONES,URINE NEGATIVE (NEGATIVE); LEUKOCYTE ESTERASE ,URINE MODERATE (NEGATIVE); NITRITE,URINE POSITIVE (NEGATIVE); PROTEIN,URINE DIPSTICK 2+ (NEGATIVE); URINE UROBILINOGEN 1 mg/dL (0.2 - 1)
[2021-09-28 12:17] LABS: BACTERIA,URINE MANY /HPF; EPITHELIAL CELLS,URINE FEW /LPF; RBC,URINE >50 /HPF (0-5); WBC,URINE (MAN) >50 /HPF (0-5)
[2021-09-28 12:44] LABS: ALBUMIN 3.6 g/dL (3.5-5.0); ALBUMIN/GLOBULIN RATIO 0.9 (0.8-2.0); ANION GAP 13.2 mmol/L (8-16); CALCIUM 9.2 mg/dL (8.4-10.2); CREATININE, SERUM 0.75 mg/dL (0.72-1.25); POTASSIUM 4.2 mmol/L (3.5-5.1)
[2021-09-28] MEDS ORDERED: KETOROLAC TROMETHAMINE 30 MG/ML VIAL IV ONE (13:23)
[2021-09-28 14:15] VITALS: BP 164/76
[2021-09-29] MEDS ORDERED: LEVOFLOXACIN 250 MG TAB PO SCH (12:00)
== END 2021-09-28 14:15 | disposition home or self-care (01) ==
LOC: ER 11:12
DX: N50.812 Left testicular pain (principal); N45.3 Epididymo-orchitis; N39.0 Urinary tract infection, site not specified; E11.65 Type 2 diabetes mellitus with hyperglycemia; I10 Essential (primary) hypertension; E78.5 Hyperlipidemia, unspecified; J44.9 Chronic obstructive pulmonary disease, unspecified
CPT/HCPCS: 36415; 80053; 81001; 83605; 85025; 87040; 87086; 87186; 99284; J1885; J7030

== ENCOUNTER 2022-05-12 10:13 | Emergency (ER) | payer MEDICARE ==
[~2022-05-12] VITALS: Ht 165.1 cm; Wt 91.2 kg
[2022-05-12] MEDS ORDERED: CLONIDINE HCL 0.2 MG TAB PO STA (10:17)
[2022-05-12] MEDS ORDERED: CLONIDINE HCL 0.2 MG TAB ONE (10:32)
[2022-05-12 11:57] LABS: CLARITY,URINE CLOUDY (CLEAR); COLOR,URINE YELLOW (YELLOW)
[2022-05-12 11:58] LABS: KETONES,URINE NEGATIVE (NEGATIVE); LEUKOCYTE ESTERASE ,URINE TRACE (NEGATIVE); NITRITE,URINE POSITIVE (NEGATIVE); PROTEIN,URINE DIPSTICK NEGATIVE (NEGATIVE); URINE UROBILINOGEN 0.2 mg/dL (0.2 - 1)
[2022-05-12 12:14] LABS: BACTERIA,URINE MANY /HPF; EPITHELIAL CELLS,URINE FEW /LPF; RBC,URINE 0-5 /HPF (0-5); WBC,URINE (MAN) >50 /HPF (0-5)
[2022-05-12] MEDS ORDERED: PREDNISONE20 MG PO (13:31)
[2022-05-12] MEDS ORDERED: LOPRESSOR25 MG PO (14:04)
[2022-05-12] MEDS ORDERED: CIPRO500 MG PO (14:04)
== END 2022-05-12 14:10 | disposition home or self-care (01) ==
LOC: ER 10:17
DX: R51.9 Headache, unspecified (principal); I10 Essential (primary) hypertension; L20.9 Atopic dermatitis, unspecified; D18.1 Lymphangioma, any site; E11.9 Type 2 diabetes mellitus without complications; J44.9 Chronic obstructive pulmonary disease, unspecified; E78.5 Hyperlipidemia, unspecified
CPT/HCPCS: 70450; 70551; 74176; 81001; 93005; 99284

== ENCOUNTER 2022-10-03 11:40 | Inpatient (IN) | payer MEDICARE ==
[~2022-10-03] VITALS: Ht 167.6 cm; Wt 95.7 kg
[~2022-10-03 11:40] MED LIST changes: +CEFDINIR300 MG PO; +CIPRO500 MG PO; +DICYCLOMINE HCL20 MG PO; +LOPRESSOR25 MG PO; +PREDNISONE20 MG PO
[2022-10-03] MEDS ORDERED: KETOROLAC TROMETHAMINE 30 MG/ML VIAL IV STA (12:23)
[2022-10-03 12:30] LABS: BASOPHILS # (AUTO) 0.1 (0.0-0.1); BASOPHILS % 0.6 % (0.0-1.0); EOSINOPHILS # (AUTO) 1.4 (0.0-0.4); EOSINOPHILS % 16.1 % (0.0-6.0); HEMATOCRIT 41.8 % (38.2-49.6); HEMOGLOBIN 13.8 g/dL (14.0-18.0); LYMPHOCYTES # (AUTO) 1.6 (1.0-3.2); LYMPHOCYTES % 18.5 % (18.0-39.1); MEAN CORPUSCULAR HEMOGLOBIN 31.5 pg (28-32); MEAN CORPUSCULAR VOLUME 95.4 fL (81-99); MONOCYTES # (AUTO) 0.5 (0.2-0.8); MONOCYTES % 6.2 % (4.4-11.3); PLATELET COUNT 283 x10e3/uL (140-360); RED BLOOD COUNT 4.38 x10e6/uL (4.3-5.7); RED CELL DISTRIBUTION WIDTH 12.3 % (11.7-14.4)
[2022-10-03 12:38] LABS: CLARITY,URINE TURBID (CLEAR); COLOR,URINE YELLOW (YELLOW)
[2022-10-03 12:39] LABS: KETONES,URINE NEGATIVE (NEGATIVE); LEUKOCYTE ESTERASE ,URINE MODERATE (NEGATIVE); NITRITE,URINE NEGATIVE (NEGATIVE); PROTEIN,URINE DIPSTICK TRACE (NEGATIVE); URINE UROBILINOGEN 1 mg/dL (0.2 - 1)
[2022-10-03 12:41] LABS: BACTERIA,URINE MANY /HPF; EPITHELIAL CELLS,URINE MODERATE /LPF; RBC,URINE 21-50 /HPF (0-5); WBC,URINE (MAN) >50 /HPF (0-5)
[2022-10-03 12:48] LABS: ALBUMIN 3.8 g/dL (3.5-5.0); ALBUMIN/GLOBULIN RATIO 1.1 (0.8-2.0); ANION GAP 16.4 mmol/L (8-16); CALCIUM 9.3 mg/dL (8.4-10.2); CREATININE, SERUM 0.87 mg/dL (0.72-1.25); POTASSIUM 4.4 mmol/L (3.5-5.1)
[2022-10-03] MEDS ORDERED: IOPAMIDOL 370 MG/ML 100 ML INFUS..BTL INJ ONE (12:59)
[2022-10-03] MEDS ORDERED: SODIUM CHLORIDE FLUSH 10 ML SYR INJ PRN (15:30)
[2022-10-03] MEDS: Morphine 4mg INJECTION 4 MG/ML INJ IV PRN ×2 (16:07→22:51)
[2022-10-03] MEDS: ONDANSETRON HCL INJ 2MG/ML 2ML 2 MG/ML VIAL IV PRN ×2 (16:07→22:50)
[2022-10-03] MEDS: FAMOTIDINE 20 MG TAB PO SCH (16:07)
[2022-10-03] MEDS ORDERED: GADOBENATE DIMEGLUMINE 1 ML IV ONE (16:11)
[2022-10-03] MEDS ORDERED: DEXTROSE 50% SYRINGE 50 ML IV PRN (17:30)
[2022-10-03] MEDS ORDERED: ACETAMINOPHEN 325 MG TAB PO PRN (17:30)
[2022-10-03] MEDS ORDERED: Vancomycin IV 1 GM in SODIUM CHLORIDE 0.9% 250ML 250 ML IV ONE ×2 (17:45→20:00)
[2022-10-03 18:02] VITALS: BP 121/66
[2022-10-03 18:25] VITALS: BP 121/66
[2022-10-03 18:29] VITALS: BP 121/66
[2022-10-03 19:53] VITALS: BP 121/66
[2022-10-03] MEDS: INSULIN REGULAR, HUMAN 100 UNIT/1 ML SQ SCH (21:00)
[2022-10-03] MEDS: OXYBUTYNIN CHLORIDE 5 MG TAB PO SCH (21:59)
[2022-10-03] MEDS: ATORVASTATIN 20 MG TAB PO SCH (21:59)
[2022-10-03 22:15] VITALS: BP 121/55
[2022-10-04] VITALS (8 sets, daily range): BP systolic 107–139; BP diastolic 58–78
[2022-10-04] MEDS ORDERED: SODIUM CHLORIDE 0.9% 250ML 250 ML ONE (00:33)
[2022-10-04 06:52] LABS: BASOPHILS # (AUTO) 0.1 (0.0-0.1); BASOPHILS % 0.7 % (0.0-1.0); EOSINOPHILS # (AUTO) 1.5 (0.0-0.4); HEMATOCRIT 39.7 % (38.2-49.6); HEMOGLOBIN 13.1 g/dL (14.0-18.0); LYMPHOCYTES # (AUTO) 1.4 (1.0-3.2); LYMPHOCYTES % 19.3 % (18.0-39.1); MEAN CORPUSCULAR HEMOGLOBIN 31.6 pg (28-32); MEAN CORPUSCULAR VOLUME 95.9 fL (81-99); MONOCYTES # (AUTO) 0.7 (0.2-0.8); MONOCYTES % 9.2 % (4.4-11.3); NEUTROPHILS # (AUTO) 3.5 (2.1-6.9); NEUTROPHILS % 49.2 % (38.7-80.0); PLATELET COUNT 277 x10e3/uL (140-360); RED BLOOD COUNT 4.14 x10e6/uL (4.3-5.7); RED CELL DISTRIBUTION WIDTH 12.3 % (11.7-14.4)
[2022-10-04 07:41] LABS: ANION GAP 14.4 mmol/L (8-16); CREATININE, SERUM 0.79 mg/dL (0.72-1.25); POTASSIUM 4.4 mmol/L (3.5-5.1)
[2022-10-04] MEDS: FAMOTIDINE 20 MG TAB PO SCH ×2 (08:42→16:30)
[2022-10-04] MEDS: OXYBUTYNIN CHLORIDE 5 MG TAB PO SCH ×3 (08:42→21:02)
[2022-10-04] MEDS: METOPROLOL TARTRATE 25 MG TAB PO SCH (08:43)
[2022-10-04] MEDS: INSULIN REGULAR, HUMAN 100 UNIT/1 ML SQ SCH ×4 (08:44→21:00)
[2022-10-04] MEDS: Morphine 4mg INJECTION 4 MG/ML INJ IV PRN ×2 (08:52→21:03)
[2022-10-04 12:23] LABS: EOSINOPHILS % (MANUAL) 16 % (0-7); LYMPHOCYTES % (MANUAL) 17 % (19-48); MONOCYTES % (MANUAL) 8 % (3.4-9.0); NEUTROPHILS % (MANUAL) 56 % (40-74)
[2022-10-04 12:24] LABS: PLATELET ESTIMATE ADEQUATE; PLATELET MORPHOLOGY COMMENT NORMAL; RBC MORPHOLOGY COMMENT NORMAL
[2022-10-04] MEDS ORDERED: LORAZEPAM 1 MG TAB PO PRN (13:15)
[2022-10-04] MEDS: ATORVASTATIN 20 MG TAB PO SCH (21:02)
[2022-10-04] MEDS: ONDANSETRON HCL INJ 2MG/ML 2ML 2 MG/ML VIAL IV PRN (21:03)
[2022-10-05] VITALS (8 sets, daily range): BP systolic 114–141; BP diastolic 57–77
[2022-10-05] MEDS ORDERED: CEFTRIAXONE 2 GM VIAL ONE (07:21)
[2022-10-05] MEDS: INSULIN REGULAR, HUMAN 100 UNIT/1 ML SQ SCH (08:10)
[2022-10-05] MEDS: THIAMINE HCL 100 MG TAB PO SCH (08:14)
[2022-10-05] MEDS: CEFTRIAXONE 2 GM in SODIUM CHLORIDE 0.9% 100 ML IV SCH (08:14)
[2022-10-05] MEDS: METOPROLOL TARTRATE 25 MG TAB PO SCH (08:15)
[2022-10-05] MEDS: OXYBUTYNIN CHLORIDE 5 MG TAB PO SCH ×3 (08:15→22:32)
[2022-10-05] MEDS: FAMOTIDINE 20 MG TAB PO SCH ×2 (08:15→16:56)
[2022-10-05] MEDS: MULTIVITAMINS/MINERALS TAB PO SCH (08:15)
[2022-10-05] MEDS: Morphine 4mg INJECTION 4 MG/ML INJ IV PRN ×2 (08:19→18:29)
[2022-10-05] MEDS: INSULIN LISPRO 100 UNIT/1 ML 3ML VIAL SQ SCH ×3 (12:30→21:00)
[2022-10-05] MEDS: ATORVASTATIN 20 MG TAB PO SCH (22:32)
[2022-10-06] VITALS (8 sets, daily range): BP systolic 118–151; BP diastolic 61–80
[2022-10-06] MEDS: ONDANSETRON HCL INJ 2MG/ML 2ML 2 MG/ML VIAL IV PRN (04:04)
[2022-10-06] MEDS: Morphine 4mg INJECTION 4 MG/ML INJ IV PRN ×2 (04:05→19:13)
[2022-10-06] MEDS: FAMOTIDINE 20 MG TAB PO SCH ×2 (07:30→16:32)
[2022-10-06] MEDS: INSULIN LISPRO 100 UNIT/1 ML 3ML VIAL SQ SCH ×4 (07:30→21:00)
[2022-10-06] MEDS: OXYBUTYNIN CHLORIDE 5 MG TAB PO SCH ×3 (09:00→21:19)
[2022-10-06] MEDS: CEFTRIAXONE 2 GM in SODIUM CHLORIDE 0.9% 100 ML IV SCH (09:13)
[2022-10-06 09:36] LABS: INR 1.04; PROTHROMBIN TIME 14.1 seconds (11.9-14.5)
[2022-10-06] MEDS ORDERED: LIDOCAINE HCL 1% LOCAL INJ 20 ML VIAL ONE (10:54)
[2022-10-06] MEDS ORDERED: SODIUM CHLORIDE 0.9% 250ML 250 ML ONE (11:27)
[2022-10-06] MEDS ORDERED: MIDAZOLAM HCL 2 MG/2 ML VIAL ONE (11:27)
[2022-10-06] MEDS ORDERED: FENTANYL CITRATE/PF 100MCG/2 ML INJ ONE (11:27)
[2022-10-06] MEDS: THIAMINE HCL 100 MG TAB PO SCH (13:19)
[2022-10-06] MEDS: MULTIVITAMINS/MINERALS TAB PO SCH (13:19)
[2022-10-06] MEDS: METOPROLOL TARTRATE 25 MG TAB PO SCH (13:20)
[2022-10-06 13:49] LABS: BODY FLUID APPEARANCE CLOUDY; BODY FLUID COLOR RED; BODY FLUID TYPE SYNOVIAL
[2022-10-06 13:50] LABS: RBC,BODY FLUID 121000 cells/uL; WBC,BODY FLUID 158 cells/uL
[2022-10-06 14:11] LABS: BASOPHILS,BODY FLUID 1 %; EOSINOPHILS,BODY FLUID 15 %; LYMPHOCYTES,BODY FLUID 9 %; MONO/MACROPHG,BODY FLUID 33 %; NEUTROPHILS,BODY FLUID 42 %
[2022-10-06] MEDS: ATORVASTATIN 20 MG TAB PO SCH (21:19)
[2022-10-07] VITALS (7 sets, daily range): BP systolic 130–139; BP diastolic 63–77
[2022-10-07] MEDS ORDERED: Morphine 2mg Syringe 2 MG/ML SYR ONE (05:33)
[2022-10-07] MEDS: HYDROCODONE/APAP 5MG-325MG TAB PO PRN ×3 (06:09→19:20)
[2022-10-07] MEDS: CEFTRIAXONE 2 GM in SODIUM CHLORIDE 0.9% 100 ML IV SCH (08:35)
[2022-10-07] MEDS: FAMOTIDINE 20 MG TAB PO SCH ×2 (08:37→16:45)
[2022-10-07] MEDS: THIAMINE HCL 100 MG TAB PO SCH (08:37)
[2022-10-07] MEDS: OXYBUTYNIN CHLORIDE 5 MG TAB PO SCH ×3 (08:37→20:45)
[2022-10-07] MEDS: MULTIVITAMINS/MINERALS TAB PO SCH (08:37)
[2022-10-07] MEDS: METOPROLOL TARTRATE 25 MG TAB PO SCH (08:37)
[2022-10-07] MEDS: INSULIN LISPRO 100 UNIT/1 ML 3ML VIAL SQ SCH ×4 (08:42→20:48)
[2022-10-07 11:14] LABS: BASOPHILS % 0.4 % (0.0-1.0); EOSINOPHILS # (AUTO) 0.8 (0.0-0.4); EOSINOPHILS % 11.3 % (0.0-6.0); HEMATOCRIT 44.9 % (38.2-49.6); HEMOGLOBIN 14.7 g/dL (14.0-18.0); LYMPHOCYTES # (AUTO) 1.5 (1.0-3.2); LYMPHOCYTES % 21.4 % (18.0-39.1); MEAN CORPUSCULAR HEMOGLOBIN 31.8 pg (28-32); MEAN CORPUSCULAR HGB CONC 32.7 g/dL (31-35); MEAN CORPUSCULAR VOLUME 97.2 fL (81-99); MONOCYTES # (AUTO) 0.6 (0.2-0.8); NEUTROPHILS # (AUTO) 4.1 (2.1-6.9); NEUTROPHILS % 58.3 % (38.7-80.0); PLATELET COUNT 312 x10e3/uL (140-360); RED BLOOD COUNT 4.62 x10e6/uL (4.3-5.7); RED CELL DISTRIBUTION WIDTH 11.9 % (11.7-14.4)
[2022-10-07 11:32] LABS: ANION GAP 14.2 mmol/L (8-16); CALCIUM 9.4 mg/dL (8.4-10.2); CREATININE, SERUM 0.69 mg/dL (0.72-1.25); POTASSIUM 4.2 mmol/L (3.5-5.1)
[2022-10-07] MEDS: ATORVASTATIN 20 MG TAB PO SCH (20:45)
[2022-10-08] VITALS: BP 139/78
[2022-10-08] MEDS: HYDROCODONE/APAP 5MG-325MG TAB PO PRN ×2 (02:57→11:39)
[2022-10-08 04:00] VITALS: BP 137/69
[2022-10-08] MEDS: Morphine 4mg INJECTION 4 MG/ML INJ IV PRN (06:13)
[2022-10-08] MEDS: ONDANSETRON HCL INJ 2MG/ML 2ML 2 MG/ML VIAL IV PRN (06:13)
[2022-10-08] MEDS: METOPROLOL TARTRATE 25 MG TAB PO SCH (08:20)
[2022-10-08] MEDS: THIAMINE HCL 100 MG TAB PO SCH (08:20)
[2022-10-08] MEDS: OXYBUTYNIN CHLORIDE 5 MG TAB PO SCH (08:20)
[2022-10-08] MEDS: MULTIVITAMINS/MINERALS TAB PO SCH (08:20)
[2022-10-08] MEDS: FAMOTIDINE 20 MG TAB PO SCH (08:20)
[2022-10-08] MEDS: CEFTRIAXONE 2 GM in SODIUM CHLORIDE 0.9% 100 ML IV SCH (08:20)
[2022-10-08] MEDS: INSULIN LISPRO 100 UNIT/1 ML 3ML VIAL SQ SCH ×2 (08:25→12:45)
[2022-10-08 08:27] VITALS: BP 149/63
[2022-10-08 09:28] VITALS: BP 149/63
[2022-10-08 13:16] VITALS: BP 122/72
== END 2022-10-08 14:32 | disposition home health service (06) | DRG 690 ==
LOC: ER 11:55 → ERHOLD 15:18 → MED/SURG3 18:08
PROVIDERS: ADMIT Internal Medicine; ATTEND Internal Medicine
PROC: 0S9B3ZZ Drainage of Left Hip Joint, Percutaneous Approach (ICD-10-PCS; principal; 2022-10-06)
PROC: 02HV33Z Insertion of Infusion Device into Superior Vena Cava, Percutaneous Approach (ICD-10-PCS; 2022-10-06)
DX: N39.0 Urinary tract infection, site not specified (principal); L02.31 Cutaneous abscess of buttock; L02.416 Cutaneous abscess of left lower limb; I10 Essential (primary) hypertension; E78.00 Pure hypercholesterolemia, unspecified; E11.9 Type 2 diabetes mellitus without complications; K21.9 Gastro-esophageal reflux disease without esophagitis; M25.452 Effusion, left hip; B96.20 Unspecified Escherichia coli [E. coli] as the cause of diseases classified elsewhere; M16.12 Unilateral primary osteoarthritis, left hip; Z20.822 Contact with and (suspected) exposure to COVID-19
CPT/HCPCS: 0223U; 10160; 36415; 36569; 71045; 74177; 74470; 76705; 77012; 80048; 80053; 81001; 82948; 85025; 85610; 86140; 87040; 87070; 87071; 87075; 87086; 87186; 87205; 89051; 93306; 99152; 99153; 99284; J0696; J1885; J2001; J2250; J2270; J2405; J2543; J3411; J7050; Q9967

== ENCOUNTER 2024-12-18 04:38 | Emergency (ER) | payer MEDICARE ==
[~2024-12-18] VITALS: Ht 170.2 cm; Wt 89.8 kg
[~2024-12-18 04:38] MED LIST changes: +ANTIVERT25 M1 PO
[2024-12-18 04:43] VITALS: TEMP 98.7
[2024-12-18] MEDS ORDERED: KETOROLAC TROMETHAMINE 30 MG/ML VIAL ONE (04:55)
[2024-12-18] MEDS: SODIUM CHLORIDE 0.9% 1000ML 1,000 ML IV ONE (04:58)
[2024-12-18] MEDS: KETOROLAC TROMETHAMINE 30 MG/ML VIAL IV STA (04:59)
[2024-12-18 05:02] LABS: BASOPHILS % 0.5 % (0.0-1.0); EOSINOPHILS # (AUTO) 0.7 (0.0-0.4); EOSINOPHILS % 8.8 % (0.0-6.0); HEMATOCRIT 40.3 % (38.2-49.6); HEMOGLOBIN 13.6 g/dL (14.0-18.0); LYMPHOCYTES # (AUTO) 2.1 (1.0-3.2); LYMPHOCYTES % 26.6 % (18.0-39.1); MEAN CORPUSCULAR HEMOGLOBIN 32.5 pg (28-32); MEAN CORPUSCULAR HGB CONC 33.7 g/dL (31-35); MEAN CORPUSCULAR VOLUME 96.4 fL (81-99); MONOCYTES # (AUTO) 0.6 (0.2-0.8); MONOCYTES % 8.2 % (4.4-11.3); NEUTROPHILS # (AUTO) 4.3 (2.1-6.9); NEUTROPHILS % 55.4 % (38.7-80.0); PLATELET COUNT 239 x10e3/uL (140-360); RED BLOOD COUNT 4.18 x10e6/uL (4.3-5.7); RED CELL DISTRIBUTION WIDTH 13.2 % (11.7-14.4)
[2024-12-18 05:06] LABS: BILIRUBIN,URINE NEGATIVE (NEGATIVE); CLARITY,URINE CLOUDY (CLEAR); COLOR,URINE YELLOW (YELLOW); GLUCOSE, URINE NEGATIVE (NEGATIVE); KETONES,URINE NEGATIVE (NEGATIVE); LEUKOCYTE ESTERASE ,URINE 1+ (NEGATIVE); NITRITE,URINE POSITIVE (NEGATIVE); PH,URINE 6 (5 - 7); PROTEIN,URINE DIPSTICK TRACE (NEGATIVE); URINE UROBILINOGEN 0.2 mg/dL (0.2 - 1)
[2024-12-18 05:14] LABS: BACTERIA,URINE MANY /HPF; EPITHELIAL CELLS,URINE FEW /LPF; RBC,URINE 21-50 /HPF (0-5); WBC,URINE (MAN) >50 /HPF (0-5)
[2024-12-18 05:24] LABS: ALBUMIN 3.7 g/dL (3.5-5.0); ALBUMIN/GLOBULIN RATIO 1.3 (0.8-2.0); ANION GAP 14.1 mmol/L (8-16); BILIRUBIN,TOTAL 0.9 mg/dL (0.2-1.2); CALCIUM 8.4 mg/dL (8.4-10.2); CREATININE, SERUM 0.69 mg/dL (0.72-1.25); POTASSIUM 4.1 mmol/L (3.5-5.1); TOTAL PROTEIN 6.6 g/dL (6.5-8.1)
[2024-12-18 06:49] VITALS: PULSE 77; RESP 16; O2SAT 98
[2024-12-18] MEDS ORDERED: MECLIZINE HCL25 MG PO (06:53)
[2024-12-18] MEDS ORDERED: METHOCARBAMOL500 MG PO (06:53)
== END 2024-12-18 06:58 | disposition home or self-care (01) ==
LOC: ER 04:45
DX: S29.012A Strain of muscle and tendon of back wall of thorax, initial encounter (principal); N39.0 Urinary tract infection, site not specified; I10 Essential (primary) hypertension; E11.65 Type 2 diabetes mellitus with hyperglycemia; J44.9 Chronic obstructive pulmonary disease, unspecified; E78.5 Hyperlipidemia, unspecified; M19.09 Primary osteoarthritis, other specified site; F17.210 Nicotine dependence, cigarettes, uncomplicated
CPT/HCPCS: 36415; 74176; 80053; 81001; 85025; 87086; 87186; 99284; J0696; J1885; J7030

== ENCOUNTER 2025-01-03 13:54 | Emergency (ER) | payer MEDICARE ==
[~2025-01-03] VITALS: Ht 170.2 cm; Wt 89.8 kg
[~2025-01-03 13:54] MED LIST changes: +MECLIZINE HCL25 MG PO; +METHOCARBAMOL500 MG PO
[2025-01-03 15:17] LABS: BASOPHILS % 0.5 % (0.0-1.0); EOSINOPHILS % 6.8 % (0.0-6.0); LYMPHOCYTES % 19.0 % (18.0-39.1); MONOCYTES % 7.6 % (4.4-11.3); NEUTROPHILS % 65.5 % (38.7-80.0); RED CELL DISTRIBUTION WIDTH 13.2 % (11.7-14.4)
[2025-01-03 15:31] LABS: EST GLOMERULAR FILTRATION RATE 98 ML/MIN (>=60)
[2025-01-03 18:42] LABS: LEUKOCYTE ESTERASE ,URINE MODERATE (NEGATIVE); PROTEIN,URINE DIPSTICK NEGATIVE (NEGATIVE); URINE UROBILINOGEN 0.2 mg/dL (0.2 - 1)
[2025-01-03 18:46] VITALS: PULSE 77; RESP 17; TEMP 98
[2025-01-03 18:56] LABS: WBC,URINE (MAN) 21-50 /HPF (0-5)
[2025-01-03] MEDS ORDERED: PANTOPRAZOLE SO40 MG PO (19:10)
[2025-01-03] MEDS ORDERED: MACROBID 100 M100 MG PO (19:10)
[2025-01-03 19:15] VITALS: BP 149/79; PULSE 77; RESP 17; TEMP 98; O2SAT 98
== END 2025-01-03 19:18 | disposition home or self-care (01) ==
LOC: ER 15:09
DX: R07.9 Chest pain, unspecified (principal); R06.02 Shortness of breath; N39.0 Urinary tract infection, site not specified; K21.9 Gastro-esophageal reflux disease without esophagitis; I10 Essential (primary) hypertension; E11.9 Type 2 diabetes mellitus without complications; J44.9 Chronic obstructive pulmonary disease, unspecified; E78.5 Hyperlipidemia, unspecified; M19.90 Unspecified osteoarthritis, unspecified site; N12 Tubulo-interstitial nephritis, not specified as acute or chronic; F17.210 Nicotine dependence, cigarettes, uncomplicated; R91.1 Solitary pulmonary nodule; E04.1 Nontoxic single thyroid nodule; K44.9 Diaphragmatic hernia without obstruction or gangrene; Z96.642 Presence of left artificial hip joint; Z87.440 Personal history of urinary (tract) infections
CPT/HCPCS: 36415; 71045; 71260; 80053; 81001; 82550; 83880; 84484; 85025; 85379; 93005; 99284